=== PATIENT | female | born 1985 | race Caucasian/White ===

== ENCOUNTER → 2020-10-05 | Outpatient (CLI) | payer MEDICAID ==
--- NOTE | 2020-10-05 16:56 | KCIC ---
EXAM: 3 views of the left ankle DATE: 10/05/2020 2:04 PM INDICATION: Reason: RT FOOT/GREAT TOE PAIN, TRIPPED TODAY SUBBING TOE / Spl. Instructions: / History : COMPARISON: No Prior FINDINGS: No acute fracture or dislocation. Ankle mortise is congruent. Talar dome is intact. Joint spaces are preserved without significant degenerative/proliferative change. No significant soft tissue swelling. IMPRESSION: No acute fracture or dislocation. EXAM: 3 views right foot DATE: 10/05/2020 2:04 PM INDICATION: Reason: RT FOOT/GREAT TOE PAIN, TRIPPED TODAY SUBBING TOE / Spl. Instructions: / History : COMPARISON: No Prior FINDINGS: No evidence of acute fracture or dislocation. Mild soft tissue swelling overlying the fifth MTP joint . Joint spaces are grossly preserved. IMPRESSION: No evidence of acute fracture or dislocation. Mild soft tissue swelling overlying the right fifth MTP joint. Electronically signed by: Gopi Painter MD (10/05/2020 4:54 PM) [id number]
== END ==
LOC: KCIC 13:55
PROVIDERS: ATTEND Family Medicine
DX: M79.89 Other specified soft tissue disorders (principal); M79.671 Pain in right foot; M25.572 Pain in left ankle and joints of left foot
CPT/HCPCS: 73610; 73630